=== PATIENT | male | born 1980 | race African-American/Black ===

== ENCOUNTER 2022-01-02 17:29 | Emergency (ER) | payer OTHER, SELFPAY ==
[2022-01-02 17:48] VITALS: BP 146/91; PULSE 80; RESP 16; TEMP 36.2; O2SAT 100
--- NOTE | 2022-01-02 17:51 | ED.EAR ---
HPI - Ear Problem General Chief complaint: Ear Stated complaint: Right Ear Irritation Time Seen by Provider: 01/02/22 17:51 Source: patient Mode of arrival: ambulatory Limitations: no limitations Course Vital Signs Vital signs: Vital Signs Temperature 36.2 C L 01/02/22 17:48 Pulse Rate 80 01/02/22 17:48 Respiratory Rate 16 01/02/22 17:48 Blood Pressure 146/91 H 01/02/22 17:48 Pulse Oximetry 100 01/02/22 17:48 Temperature 36.2 C L 01/02/22 17:48 Pulse Rate 80 01/02/22 17:48 Respiratory Rate 16 01/02/22 17:48 Blood Pressure 146/91 H 01/02/22 17:48 Pulse Oximetry 100 01/02/22 17:48 Medical Decision Making Vital Signs Vital Signs: Vital Signs Temperature 36.2 C L 01/02/22 17:48 Pulse Rate 80 01/02/22 17:48 Respiratory Rate 16 01/02/22 17:48 Blood Pressure 146/91 H 01/02/22 17:48 Pulse Oximetry 100 01/02/22 17:48 Temperature 36.2 C L 01/02/22 17:48 Pulse Rate 80 01/02/22 17:48 Respiratory Rate 16 01/02/22 17:48 Blood Pressure 146/91 H 01/02/22 17:48 Pulse Oximetry 100 01/02/22 17:48 Discharge Plan Discharge Follow-up/Referrals: Fredrick Sandoval MD [Primary Care Provider] -
--- NOTE | 2022-01-03 07:58 | ED.EYEPROB ---
HPI - Eye Problem General Chief complaint: Eye Problems Stated complaint: Right Ear Irritation Time Seen by Provider: 01/02/22 17:51 Source: patient Mode of arrival: ambulatory Limitations: no limitations History of Present Illness HPI Narrative: 41-year-old male presents with complaint right eyelid swelling, redness and pain for 1 week. Reports history of similar symptoms to left eyelid in the past month. Saw his PCP for this and was given eyedrops states got better on its own without the eyedrops. Denies vision change. No drainage. All systems reviewed and negative except as noted above. Related Data Home Medications Medication Instructions Recorded Confirmed amlodipine 5 mg tablet 5 mg PO DAILY 01/02/22 01/02/22 Allergies Allergy/AdvReac Type Severity Reaction Status Date / Time No Known Allergies Allergy Verified 01/02/22 17:58 Review of Systems Review of Systems: CONSTITUTIONAL: Denies fever, chills, or sweats. EYES: Denies visual changes, redness, or discharge. Reports redness, swelling and tenderness to right upper eyelid. ENT: Denies rhinorrhea, congestion, sore throat, or otalgia. CARDIOVASCULAR: Denies chest pain, palpitations, or edema. RESPIRATORY: Denies cough or dyspnea. GASTROINTESTINAL: Denies abdominal pain, nausea, vomiting, or diarrhea. GENITOURINARY: Denies dysuria or hematuria. SKIN: Denies rash or itching. MUSCULOSKELETAL: Denies back pain, joint pain, or myalgia. NEUROLOGIC: Denies headache, numbness, or weakness. PSYCHIATRIC: Denies anxiety or depression. All other systems reviewed are negative, except as documented in HPI. PMFSH Comments At time of signature, agree with nursing past medical, surgical, social and family history. There is no relevant family history pertinent to the presenting complaint. Exam Narrative: GENERAL: This is a well-nourished, well-developed patient, in no apparent distress. HEAD: normocephalic, atraumatic. EYES: PERRL. Sclera clear/white. Vision is grossly intact. Erythema, tenderness, swelling to right upper eyelid. No drainage noted. Internal hordeolum noted. EARS: External ears normal NOSE: External nose normal NECK: Neck supple, non-tender without lymphadenopathy, masses or thyromegaly. CARDIOVASCULAR: Regular rate and rhythm without murmurs, gallops, or rubs. RESPIRATORY: Clear to auscultation. Breath sounds equal bilaterally. No wheezes, rales, or rhonchi. SKIN: warm, Dry, intact with no suspicious lesions or rash, good texture and turgor. NEURO: awake, alert, and oriented to person, place and time. There were no obvious focal neurologic abnormalities. EXTREMITIES: No joint tenderness, effusion, or edema noted. Course Course Level of Care: Express Care Visit Vital Signs Vital signs: Vital Signs Temperature 36.2 C L 01/02/22 17:48 Pulse Rate 80 01/02/22 17:48 Respiratory Rate 16 01/02/22 17:48 Blood Pressure 146/91 H 01/02/22 17:48 Pulse Oximetry 100 01/02/22 17:48 Temperature 36.2 C L 01/02/22 17:48 Pulse Rate 80 01/02/22 17:48 Respiratory Rate 16 01/02/22 17:48 Blood Pressure 146/91 H 01/02/22 17:48 Pulse Oximetry 100 01/02/22 17:48 Reviewed MDM - Eye Problem MDM Narrative Medical decision making narrative: Patient is aware of diagnosis, understands and agrees to treatment plan. Anticipatory guidance given. Patient agrees to follow-up as directed and is aware of reasons to seek care at the emergency department. Portions of this record may have been created with voice recognition software Differential Diagnosis Differential diagnosis: Likely conjunctivitis, periorbital cellulitis and other ( safia baker) Discharge Plan Discharge Clinical Impression: Hordeolum internum of right upper eyelid Patient Disposition: Home, Self-Care Condition: Stable Instructions: Jaren Amaya (ED) Additional Instructions: Use antibiotic eye ointment as prescribed. Wash hand
== END 2022-01-02 18:00 | disposition home or self-care (01) ==
PROVIDERS: Emergency Provider Nurse Practitioner Family; PCP Internal Medicine
DX: H00.021 Hordeolum internum right upper eyelid (principal); I10 Essential (primary) hypertension
CPT/HCPCS: 99213; G0463